=== PATIENT | male | born 1990 | race Caucasian/White ===

== ENCOUNTER 2016-12-10 08:51 | Emergency (ER) | payer MEDICAID, OTHER | END 2016-12-10 10:30 | disposition home or self-care (01) | LOC: C.ER 08:51 | DX: J02.9 Acute pharyngitis, unspecified (principal) ==

== ENCOUNTER 2016-12-21 10:06 | Emergency (ER) | payer MEDICAID ==
[2016-12-21 10:23] VITALS: BP 129/87; PULSE 65; RESP 20; TEMP 97.5; O2SAT 99
--- NOTE | 2016-12-21 10:33 | C.PDOC ---
History Of Present Illness 26 y/o male presents to the ED with complains of left ear pain. Pt states he has been taking antibiotics for a throat infection. Throat symptoms have resolved but now has ear pain. Denies fever, chills, or any other complaints. Time Seen by Provider: 12/21/16 10:15 Chief Complaint (Nursing): ENT Problem History Per: Patient History/Exam Limitations: None Onset/Duration Of Symptoms: Days Current Symptoms Are (Timing): Still Present Symptoms Have Been: Continuous Severity: Mild Anticoagulant/Antiplatlet Use?: No Past Medical History Reviewed: Historical Data, Nursing Documentation, Vital Signs Vital Signs: Last Vital Signs Temp 97.5 F L 12/21/16 10:12 Pulse 65 12/21/16 10:12 Resp 20 12/21/16 10:12 BP 129/87 12/21/16 10:12 Pulse Ox 99 12/21/16 10:34 - Medical History PMH: Migraine Surgical History: Appendectomy Family History: States: Unknown Family Hx - Social History Hx Tobacco Use: No Hx Alcohol Use: No Hx Substance Use: No - Immunization History Hx Tetanus Toxoid Vaccination: Yes Hx Influenza Vaccination: Yes Hx Pneumococcal Vaccination: Yes Review Of Systems Constitutional: Negative for: Fever, Chills ENT: Positive for: Ear Pain (left). Negative for: Throat Pain Physical Exam - Physical Exam Appears: Non-toxic, No Acute Distress Skin: Warm, Dry, No Rash Head: Atraumatic, Normacephalic Ear(s): Left: Other (left canal erythematous), Right: Normal Nose: Normal Oral Mucosa: Moist Throat: Normal, No Erythema, No Exudate Neck: Normal, Normal ROM, Supple Extremity: Bilateral: Atraumatic Neurological/Psych: Oriented x3, Normal Speech ED Course And Treatment O2 Sat by Pulse Oximetry: 99 (room air) Pulse Ox Interpretation: Normal Disposition - Disposition Referrals: [facility] [Outside] [facility] [Outside] [facility] [employer] [facility] [Outside] Javon Villar MD [Staff Provider] - Disposition: HOME/ ROUTINE Disposition Time: 11:00 Condition: GOOD Additional Instructions: please follow up with specialist. return to er with worsening symptoms or concerns. Prescriptions: Neomycin/Polymyxin/Hydrocort [Cortisporin Otic Soln] 4 drop AD TID #1 bottle Instructions: Otitis Externa (ED) - Clinical Impression Clinical Impression: Otitis externa - Scribe Statement The provider has reviewed the documentation as recorded by the Zeinaibsyl Vasquez Provider Attestation: All medical record entries made by the Andre were at my direction and personally dictated by me. I have reviewed the chart and agree that the record accurately reflects my personal performance of the history, physical exam, medical decision making, and the department course for this patient. I have also personally directed, reviewed, and agree with the discharge instructions and disposition.
== END 2016-12-21 10:49 | disposition home or self-care (01) ==
LOC: C.ER 10:06
DX: H60.92 Unspecified otitis externa, left ear (principal)

== ENCOUNTER 2016-12-30 20:39 | Emergency (ER) | payer MEDICAID ==
[2016-12-30 20:57] VITALS: BP 119/75; PULSE 94; RESP 18; TEMP 98.1; O2SAT 97
[2016-12-30] MEDS ORDERED: Naproxen 275 mg Tab PO STA (21:04)
--- NOTE | 2016-12-30 21:14 | C.PDOC ---
History Of Present Illness 26 y/o male presents to ED with complaint of left chest wall and upper back pain for 2 days. Patient describes pain as burning and aching sensation. He admits to heavy lifting at work. Notes that pain worsens with movement and palpation. Denies fever, chills, SOB, palpitations, nausea, rash, or other associated symptoms. Time Seen by Provider: 12/30/16 20:59 Chief Complaint (Nursing): Upper Extremity Problem/Injury History Per: Patient History/Exam Limitations: no limitations Onset/Duration Of Symptoms: Days Current Symptoms Are (Timing): Still Present Quality: Burning, Aching, "Pain" Exacerbating Factor(s): Movement Recent travel outside of the [place]: No Past Medical History Reviewed: Historical Data, Nursing Documentation, Vital Signs Vital Signs: Last Vital Signs Temp 98.1 F 12/30/16 20:54 Pulse 94 H 12/30/16 20:54 Resp 18 12/30/16 20:54 BP 119/75 12/30/16 20:54 Pulse Ox 97 12/30/16 21:32 - Medical History PMH: Migraine Surgical History: Appendectomy Family History: States: Unknown Family Hx - Social History Hx Tobacco Use: No Hx Alcohol Use: No Hx Substance Use: No - Immunization History Hx Tetanus Toxoid Vaccination: Yes Hx Influenza Vaccination: Yes Hx Pneumococcal Vaccination: Yes Review Of Systems Except As Marked, All Systems Reviewed And Found Negative. Constitutional: Negative for: Fever, Chills Cardiovascular: Negative for: Palpitations, Light Headedness Respiratory: Negative for: Cough, Shortness of Breath, Wheezing Gastrointestinal: Negative for: Nausea, Vomiting, Abdominal Pain Musculoskeletal: Positive for: Back Pain, Other (chest wall pain). Negative for : Arm Pain Skin: Negative for: Rash Physical Exam - Physical Exam Appears: Non-toxic, No Acute Distress Skin: Normal Color, Warm, Dry, No Diaphoretic, No Rash Head: Atraumatic, Normacephalic Neck: No Midline Cervical Tenderness, No Paracervical Tenderness, Supple Chest: Symmetrical, Tenderness (left sided tenderness to palpation), No Ecchymosis Cardiovascular: Rhythm Regular, No Murmur Respiratory: Normal Breath Sounds, No Rales, No Rhonchi, No Wheezing Gastrointestinal/Abdominal: Soft, No Tenderness, No Guarding, No Rebound Back: Normal Inspection, No Vertebral Tenderness, No Paraspinal Tenderness Extremity: Normal ROM, Capillary Refill (< 2 sec. ) Neurological/Psych: Oriented x3, Normal Speech, Normal Cognition ED Course And Treatment O2 Sat by Pulse Oximetry: 97 (RA) Pulse Ox Interpretation: Normal Medical Decision Making Medical Decision Making: muscular pain, offer chest xray but patient refuses states had no trauma. Treated with Naproxen. Patient reports improvement of pain on re-evaluation. Advised follow up with PMD/clinic for further evaluation. Disposition Counseled Patient/Family Regarding: Need For Followup, Rx Given - Disposition Referrals: West Cano MD [Medical Doctor] - Disposition: HOME/ ROUTINE Disposition Time: 21:30 Condition: STABLE Additional Instructions: Take Motrin as needed for pain every 6 hours, with food to not upset stomach. Follow up with your primary doctor or orthopedic if pain persists over one week. 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 - Scribe Statement The provider has reviewed the documentation as recorded by the Scribsyl Womack All medical record entries made by the Andre were at my direction and personally dictated by me. I have reviewed the chart and agree that the record accurately reflects my personal performance of the history, physical exam, medical decision making, and the department course for this patient. I have also personally directed, reviewed, and agree with the discharge instructions and disposition.
[2016-12-30] MEDS ORDERED: Naproxen 550 mg Tab PO ONE (21:31)
== END 2016-12-30 21:51 | disposition home or self-care (01) ==
LOC: C.ER 20:39
DX: R07.89 Other chest pain (principal)

== ENCOUNTER 2017-01-03 20:19 | Emergency (ER) | payer MEDICAID ==
[2017-01-03 20:37] VITALS: BMI 30.4
[2017-01-03 20:45] VITALS: BP 124/75; PULSE 78; RESP 18; TEMP 98.2; O2SAT 98
[2017-01-03] MEDS ORDERED: Oxycodone/Acetaminophen 5/325 mg Tab PO STA (21:13)
[2017-01-03] MEDS ORDERED: Oxycodone/Acetaminophen 5/325 mg Tab ONE (21:23)
--- NOTE | 2017-01-03 21:30 | C.PDOC ---
History Of Present Illness 26 year old male presents to the ED with complaints of a painful and burning rash to the left upper back to left lower chest for two days. Patient was seen on 12/30/2016 by doctor for back pain in the same region as the rash and was given naproxen and believes he is having an allergic reactions to the medication. Patient denies any known allergens, lip or tongue swelling. Time Seen by Provider: 01/03/17 20:54 Chief Complaint (Nursing): Abnormal Skin Integrity History Per: Patient History/Exam Limitations: no limitations Onset/Duration Of Symptoms: Days (2 days ) Current Symptoms Are (Timing): Still Present Location Of Injury: Left: Back, Chest Quality Of Symptoms: Painful, Itching. denies: Draining Recent travel outside of the [place]: No Past Medical History Reviewed: Historical Data, Nursing Documentation, Vital Signs Vital Signs: Last Vital Signs Temp 98.2 F 01/03/17 20:39 Pulse 78 01/03/17 20:39 Resp 18 01/03/17 20:39 BP 124/75 01/03/17 20:39 Pulse Ox 98 01/04/17 00:36 - Medical History PMH: Migraine Surgical History: Appendectomy Family History: States: Unknown Family Hx - Social History Hx Tobacco Use: No Hx Alcohol Use: No Hx Substance Use: No - Immunization History Hx Tetanus Toxoid Vaccination: Yes Hx Influenza Vaccination: Yes Hx Pneumococcal Vaccination: Yes Review Of Systems Constitutional: Negative for: Fever, Chills, Sweats Cardiovascular: Negative for: Chest Pain, Palpitations Respiratory: Negative for: Cough, Shortness of Breath Gastrointestinal: Negative for: Nausea, Vomiting, Abdominal Pain, Diarrhea Skin: Positive for: Rash (left upper back to left lower chest ) Physical Exam - Physical Exam Appears: Non-toxic, No Acute Distress Skin: Warm, Dry, Rash (vesicular rash in dermatomal pattern to left upper back and left lower chest wall. Old dermatitis diffusely on back also present. ) Head: Atraumatic Eye(s): bilateral: Normal Inspection, PERRL, EOMI Oral Mucosa: Moist Tongue: Normal Appearing, No Swelling Lips: Normal Appearing, No Swelling Throat: Normal, No Erythema, No Exudate Neck: Normal Chest: Symmetrical, No Deformity Cardiovascular: Rhythm Regular Respiratory: Normal Breath Sounds, No Rhonchi, No Wheezing Gastrointestinal/Abdominal: Normal Exam, Soft Extremity: Normal ROM, No Tenderness Neurological/Psych: Oriented x3 Gait: Steady ED Course And Treatment O2 Sat by Pulse Oximetry: 98 (room air ) Pulse Ox Interpretation: Normal Progress Note: percocet PO given, pt started on antiviral meds and pain meds prescribed. Will follow up in clinic. Return precautions expalined and pt verbalized understanding and agrees with plan. Disposition Counseled Patient/Family Regarding: Diagnosis, Need For Followup, Rx Given - Disposition Referrals: West Cano MD [Primary Care Provider] - Disposition: HOME/ ROUTINE Disposition Time: 21:21 Condition: STABLE Additional Instructions: Please take meds as directed Follow up with PMD Return to ER if worse Prescriptions: oxyCODONE/Acetaminophen [Percocet 5/325 mg Tab] 1 tab PO QID PRN #14 tab PRN Reason: Pain Valacyclovir HCl [Valtrex] 1 gm PO TID #21 tablet Instructions: Shingles (ED) - Clinical Impression Clinical Impression: Shingles - Scribe Statement The provider has reviewed the documentation as recorded by the Scribsyl Carballo All medical record entries made by the Scribe were at my direction and personally dictated by me. I have reviewed the chart and agree that the record accurately reflects my personal performance of the history, physical exam, medical decision making, and the department course for this patient. I have also personally directed, reviewed, and agree with the discharge instructions and disposition.
== END 2017-01-03 21:44 | disposition home or self-care (01) ==
LOC: SUPCPDRO 20:19 → C.ER 20:19
DX: B02.9 Zoster without complications (principal)

== ENCOUNTER 2017-09-15 19:18 | Emergency (ER) | payer SELFPAY ==
[2017-09-15 19:18] VITALS: BMI 30.4
[2017-09-15 20:44] VITALS: BP 138/82; PULSE 83; RESP 16; TEMP 99.1; O2SAT 98
--- NOTE | 2017-09-15 22:07 | C.PDOC ---
History Of Present Illness 27 year old male presents to the ED for evaluation of an itchy rash to his right arm which began 1 month ago. Patient states the rash started around his wrist and is now traveling up his arm. Patient denies presence of rash anywhere else on his body. Patient denies throat swelling sensation, difficulty swallowing, difficulty breathing, known allergens, recent travel, and IV drug use. Time Seen by Provider: 09/15/17 21:47 Chief Complaint (Nursing): Abnormal Skin Integrity History Per: Patient History/Exam Limitations: no limitations Onset/Duration Of Symptoms: Other (1 month ) Current Symptoms Are (Timing): Still Present Quality Of Symptoms: Itching Additional History Per: Patient Past Medical History Reviewed: Historical Data, Nursing Documentation, Vital Signs Vital Signs: Last Vital Signs Temp 99.1 F 09/15/17 20:38 Pulse 83 09/15/17 20:38 Resp 16 09/15/17 20:38 BP 138/82 09/15/17 20:38 Pulse Ox 98 09/20/17 21:46 - Medical History PMH: Migraine Surgical History: Appendectomy Family History: States: Unknown Family Hx - Social History Hx Tobacco Use: No Hx Alcohol Use: Yes Hx Substance Use: No - Immunization History Hx Tetanus Toxoid Vaccination: Yes Hx Influenza Vaccination: Yes Hx Pneumococcal Vaccination: Yes Review Of Systems ENT: Negative for: Throat Swelling Skin: Positive for: Rash Physical Exam - Physical Exam Appears: Non-toxic, No Acute Distress Skin: Rash (mildly erythematous, shiny rash to right anterior forearm, extending from right wrist to right mid-upper arm. no discharge ) Head: Atraumatic, Normacephalic Eye(s): bilateral: Normal Inspection, EOMI Ear(s): Bilateral: Normal Nose: Normal Oral Mucosa: Moist Tongue: No Swelling Lips: No Swelling Throat: Normal, No Erythema, No Exudate, No Drooling Neck: Supple Chest: Symmetrical, No Deformity, No Tenderness Cardiovascular: Rhythm Regular Respiratory: Normal Breath Sounds, No Rales, No Rhonchi, No Wheezing Extremity: Normal ROM, Capillary Refill (less than 2 seconds ) Neurological/Psych: Oriented x3, Normal Speech, Normal Cognition Gait: Steady ED Course And Treatment O2 Sat by Pulse Oximetry: 98 Progress Note: Case discussed with Dr. Moncada, who evaluated the patient at bedside. Agrees with plan and discharge. Patient is resting comfortably, tolerating PO, has no shortness of breath, has no intra-oral swelling, no stridor. Patient notes that pruritus has improved.. Patient was advised to avoid potential allergens, and to follow up with physician in 1-2 days. 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 Take medications as prescribed. Return to the emergency department at any time if symptoms persist or worsen. 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 - Scribe Statement The provider has reviewed the documentation as recorded by the Scribe (melissa Tarango) All medical record entries made by the Scribe were at my direction and personally dictated by me. I have reviewed the chart and agree that the record accurately reflects my personal performance of the history, physical exam, medical decision making, and the department course for this patient. I have also personally directed, reviewed, and agree with the discharge instructions and disposition.
== END 2017-09-15 22:34 | disposition home or self-care (01) ==
LOC: C.ER 19:18
DX: R21 Rash and other nonspecific skin eruption (principal)

== ENCOUNTER 2017-12-02 08:41 | Emergency (ER) | payer OTHER ==
[2017-12-02 08:41] VITALS: BMI 30.4
[2017-12-02 08:56] VITALS: RESP 18
[2017-12-02] MEDS ORDERED: Sodium Chloride 0.9% 1,000 ML IV ONE (09:23)
--- NOTE | 2017-12-02 09:29 | C.PDOC ---
History Of Present Illness 27 y/o male presents to ED with complaints of abdominal cramping since last night associated with vomiting and diarrhea. Patient states he took Imodium 2 hours prior to arrival with mild relief. Patient denies recent travel, fever, sick contacts, blood in stool or hematemesis. Time Seen by Provider: 12/02/17 09:09 Chief Complaint (Nursing): GI Problem History Per: Patient History/Exam Limitations: no limitations Onset/Duration Of Symptoms: Days Current Symptoms Are (Timing): Still Present Location Of Pain/Discomfort: Diffuse Past Medical History Reviewed: Historical Data, Nursing Documentation, Vital Signs Vital Signs: Last Vital Signs Temp 98 F 12/02/17 11:07 Pulse 87 12/02/17 11:07 Resp 18 12/02/17 11:07 BP 136/74 12/02/17 11:07 Pulse Ox 98 12/02/17 11:07 - Medical History PMH: Migraine Surgical History: Appendectomy Family History: States: No Known Family Hx - Social History Hx Tobacco Use: No Hx Alcohol Use: Yes Hx Substance Use: No - Immunization History Hx Tetanus Toxoid Vaccination: Yes Hx Influenza Vaccination: Yes Hx Pneumococcal Vaccination: Yes Review Of Systems Constitutional: Negative for: Fever, Chills Gastrointestinal: Positive for: Vomiting, Abdominal Pain, Diarrhea. Negative for: Hematochezia, Hematemesis Skin: Negative for: Rash Physical Exam - Physical Exam Appears: Non-toxic, No Acute Distress Skin: Warm, Dry, No Rash Head: Atraumatic, Normacephalic Eye(s): bilateral: Normal Inspection Oral Mucosa: Moist Neck: Normal ROM, Supple Cardiovascular: Rhythm Regular Respiratory: Normal Breath Sounds, No Rales, No Rhonchi, No Wheezing Gastrointestinal/Abdominal: Soft, Tenderness (Diffuse), No Guarding, No Rebound Extremity: Normal ROM, Capillary Refill (<2 seconds) Neurological/Psych: Oriented x3, Normal Speech, Normal Cognition ED Course And Treatment - Laboratory Results Result Diagrams: 12/02/17 09:54 12/02/17 09:54 O2 Sat by Pulse Oximetry: 99 (RA) Pulse Ox Interpretation: Normal Medical Decision Making Medical Decision Making: Impression: Viral vs Food poisoning Plan: * blood work * ua * protonix * zofran * iv fluids Progress: Labs reviewed without any abnormality, no leukocytosis or electrolyte abnormality Patient re-evaluated and has no fever and reports feeling better. He was able to tolerate fluids. Denies any abdominal pain at this time. Abdomen is soft flat and nontender. He is stable for discharge. Recommend fluids and CLD with progression as tolerated. Disposition Counseled Patient/Family Regarding: Diagnosis, Need For Followup - Disposition Disposition: HOME/ ROUTINE Disposition Time: 11:01 Condition: GOOD Additional Instructions: Follow up with your primary medical doctor or clinic in 2-5 days for further evaluation. Take medications as prescribed. Return to the emergency department at any time if symptoms persist or worsen. Prescriptions: Famotidine [Acid Controller] 20 mg PO BID #10 tablet Famotidine [Pepcid] 20 mg PO DAILY #20 tab Instructions: Viral Gastroenteritis, Adult (DC) Forms: [employer] ([place]ian), Work Excuse - POA Present On Arrival: None - Clinical Impression Clinical Impression: Gastroenteritis - PA / SMOCKER / Resident Statement MD/DO has reviewed & agrees with the documentation as recorded. - Scribe Statement The provider has reviewed the documentation as recorded by the Andre Benitez All medical record entries made by the Andre were at my direction and personally dictated by me. I have reviewed the chart and agree that the record accurately reflects my personal performance of the history, physical exam, medical decision making, and the department course for this patient. I have also personally directed, reviewed, and agree with the discharge instructions and disposition.
[2017-12-02] MEDS ORDERED: Sodium Chloride 0.9% 1,000 ML ONE (09:51)
[2017-12-02 10:06] LABS: BASO # 0.1 K/uL (0.0-0.2); BASO % 0.9 % (0.0-2.0); EOS # 0.2 K/uL (0.0-0.7); EOS % 3.7 % (0.0-4.0); HEMOGLOBIN 13.8 g/dL (12.0-18.0); LYMPH # 1.8 K/uL (1.0-4.3); LYMPH % 28.5 % (20.0-40.0); MEAN CELL VOLUME 84.3 fL (80.0-94.0); MEAN CORPUSCULAR HEMOGLOBIN 29.3 pg (27.0-31.0); MEAN CORPUSCULAR HGB CONC 34.8 g/dL (33.0-37.0); MEAN PLATELET VOLUME 8.7 fL (7.2-11.7); MONO # 0.5 K/uL (0.0-0.8); MONO % 7.8 % (0.0-10.0); NEUT # 3.6 K/uL (1.8-7.0); NEUT % 59.1 % (50.0-75.0); NRBC % 0.1 % (0.0-2.0); RBC 4.72 Mil/uL (4.40-5.90); RED CELL DISTRIBUTION WIDTH 13.4 % (11.5-14.5); WHITE BLOOD COUNT 6.2 K/uL (4.8-10.8)
[2017-12-02 10:36] LABS: ALB/GLOB RATIO 1.2 (1.0-2.1); ALBUMIN 4.6 g/dL (3.5-5.0); CALCIUM 9.2 mg/dl (8.6-10.4); GFR AFRICAN-AMERICAN > 60; GFR NON-AFRICAN AMERICAN > 60; LIPASE 45 U/L (23-300)
[2017-12-02 10:42] LABS: ALT/SGPT 41 U/L (21-72); AST/SGOT 44 U/L (17-59); BLOOD UREA NITROGEN 13 mg/dL (9-20)
[2017-12-02 11:08] VITALS: BP 136/74; PULSE 87; TEMP 98
[2017-12-02 15:22] VITALS: O2SAT 99
== END 2017-12-02 11:08 | disposition home or self-care (01) ==
LOC: C.ER 08:41
DX: K52.9 Noninfective gastroenteritis and colitis, unspecified (principal)
CPT/HCPCS: 80053; 83690; 85025; 96361; 96374; 96375; 99284; C9113; J2405; J7040

== ENCOUNTER 2018-02-17 10:31 | Emergency (ER) | payer OTHER ==
[2018-02-17 10:31] VITALS: BMI 30.4
[2018-02-17 10:36] VITALS: RESP 18
[2018-02-17] MEDS ORDERED: Naproxen 550 mg Tab PO STA (11:05)
[2018-02-17] MEDS ORDERED: Naproxen 550 mg Tab PO ONE (11:15)
--- NOTE | 2018-02-17 11:26 | C.PDOC ---
Time Seen by Provider: 02/17/18 10:56 Chief Complaint (Nursing): ENT Problem History Per: Patient Onset/Duration Of Symptoms: Days (2) Current Symptoms Are (Timing): Still Present Location Of Pain: Throat Associated Symptoms: Fever (subjective), Sore Throat, Cough (mild) Severity: Moderate Additional History Per: Prior Records Past Medical History Reviewed: Historical Data, Nursing Documentation, Vital Signs Vital Signs: Last Vital Signs Temp 98.8 F 02/17/18 10:34 Pulse 59 L 02/17/18 10:34 Resp 18 02/17/18 10:34 BP 129/81 02/17/18 10:34 Pulse Ox 98 02/17/18 10:34 - Medical History PMH: Migraine Surgical History: Appendectomy Family History: States: Unknown Family Hx - Social History Hx Tobacco Use: No Hx Alcohol Use: Yes Hx Substance Use: No - Immunization History Hx Tetanus Toxoid Vaccination: Yes Hx Influenza Vaccination: Yes Hx Pneumococcal Vaccination: Yes Review Of Systems Except As Marked, All Systems Reviewed And Found Negative. Constitutional: Negative for: Weakness ENT: Positive for: Throat Pain. Negative for: Nose Congestion Cardiovascular: Negative for: Chest Pain Respiratory: Negative for: Shortness of Breath Gastrointestinal: Negative for: Vomiting, Abdominal Pain Musculoskeletal: Negative for: Neck Pain Skin: Negative for: Rash Neurological: Positive for: Headache. Negative for: Weakness, Numbness Physical Exam - Physical Exam Appears: Non-toxic, No Acute Distress Skin: Normal Color, Warm, Dry, No Rash Head: Atraumatic, Normacephalic Eye(s): bilateral: Normal Inspection, PERRL, EOMI Oral Mucosa: Moist, No Drooling, No Trismus Tongue: Normal Appearing Throat: Erythema, No Exudate, No Drooling, No Mass Neck: Normal ROM, Supple Cardiovascular: Rhythm Regular Respiratory: Normal Breath Sounds, No Accessory Muscle Use Gastrointestinal/Abdominal: Soft, No Tenderness Extremity: Normal ROM Neurological/Psych: Oriented x3, Normal Motor, Normal Sensation ED Course And Treatment - Laboratory Results Interpretation Of Abnormal: Rapid strep negative. O2 Sat by Pulse Oximetry: 98 Pulse Ox Interpretation: Normal Reassessment Condition: Improved Disposition Counseled Patient/Family Regarding: Studies Performed, Diagnosis, Need For Followup, Rx Given - Disposition Referrals: [facility] [Outside] Disposition: HOME/ ROUTINE Disposition Time: 11:25 Condition: STABLE Additional Instructions: Follow up with your doctor or in the clinic. Return to the ER if you develop high fever, trouble breathing or swallowing, worsening of symptoms or if you have any other concerns. Prescriptions: Naproxen [Naprosyn] 1 tab PO BID PRN #20 tab PRN Reason: Pain Instructions: Sore Throat, Adult (DC) - Clinical Impression Clinical Impression: Acute pharyngitis
[2018-02-17 11:37] VITALS: BP 120/77; PULSE 66; TEMP 98.1; O2SAT 100
== END 2018-02-17 11:35 | disposition home or self-care (01) ==
LOC: C.ER 10:31
DX: J02.9 Acute pharyngitis, unspecified (principal)

== ENCOUNTER 2018-04-13 19:31 | Emergency (ER) | payer SELFPAY ==
[2018-04-13 19:31] VITALS: BMI 30.4
[2018-04-13 19:52] VITALS: BP 122/85; PULSE 72; TEMP 99.1; O2SAT 98
[2018-04-13] MEDS ORDERED: Lidocaine 5% Patch TD STA (20:27)
[2018-04-13] MEDS ORDERED: Lidocaine 5% Patch TD ONE (20:34)
--- NOTE | 2018-04-13 21:59 | C.PDOC ---
History Of Present Illness 28 year old male presents to ED for evaluation of left-sided lower back pain for the last few days. Patient states he was watching tv, stood up, and felt something pulled. Denies fever, nausea, vomiting, tingling, numbness, urine deficit, and other associated symptoms. Time Seen by Provider: 04/13/18 19:56 Chief Complaint (Nursing): Back Pain History Per: Patient History/Exam Limitations: no limitations Onset/Duration Of Symptoms: Days Current Symptoms Are (Timing): Still Present Past Medical History Reviewed: Historical Data, Nursing Documentation, Vital Signs Vital Signs: Last Vital Signs Temp 99.1 F 04/13/18 19:48 Pulse 72 04/13/18 19:48 Resp 20 04/13/18 22:02 BP 122/85 04/13/18 19:48 Pulse Ox 98 04/13/18 22:15 - Medical History PMH: Migraine Surgical History: Appendectomy (2002) Family History: States: Unknown Family Hx - Social History Hx Tobacco Use: No Hx Alcohol Use: No Hx Substance Use: No - Immunization History Hx Tetanus Toxoid Vaccination: Yes Hx Influenza Vaccination: Yes Hx Pneumococcal Vaccination: No Review Of Systems Constitutional: Negative for: Fever, Chills Gastrointestinal: Negative for: Nausea, Vomiting Musculoskeletal: Positive for: Back Pain (left-sided lower back) Neurological: Negative for: Weakness, Numbness, Incoordination Physical Exam - Physical Exam Appears: Non-toxic, No Acute Distress Skin: Warm, Dry Head: Atraumatic, Normacephalic Chest: Symmetrical Cardiovascular: Rhythm Regular Respiratory: Other (NARD) Back: Muscle Spasm (with tenderness) Neurological/Psych: Oriented x3, Normal Speech, Normal Motor, Normal Sensation Gait: Steady ED Course And Treatment O2 Sat by Pulse Oximetry: 98 (RA) Pulse Ox Interpretation: Normal - Other Rad LS Spine AP/LAT X-ray X-Ray: Viewed By Me, Read By Radiologist Progress Note: Ordered LS Spin AP/LAT X-ray. Given Lidocaine, Toradol and Valium. X-ray reviewed: Flattening of Lumbar Lordosis. On re-evaluation patient feels better, ambulatory. Prescribed Lidocaine, Motrin, and Valium. Disposition - Disposition Referrals: [facility] [Outside] Disposition: HOME/ ROUTINE Disposition Time: 21:57 Condition: GOOD Additional Instructions: Follow up within 1-2 days.Return to9 ED if feel worse. 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 - Scribe Statement The provider has reviewed the documentation as recorded by the Scribe (Mildred Davila) All medical record entries made by the Scribe were at my direction and personally dictated by me. I have reviewed the chart and agree that the record accurately reflects my personal performance of the history, physical exam, medical decision making, and the department course for this patient. I have also personally directed, reviewed, and agree with the discharge instructions and disposition.
[2018-04-13 22:02] VITALS: RESP 20
--- NOTE | 2018-04-14 08:41 | RAD ---
Date of service: 04/13/2018 PROCEDURE: Radiographs of the Lumbar Spine. HISTORY: pain COMPARISON: Lumbar spine series 03/30/2013. FINDINGS: BONES: Slight straightening of the lumbar curvature. No acute fracture or spondylolisthesis identified. Interval diminished disc height at L4-5 indicates degenerative disease here. DISC SPACES: As above. OTHER FINDINGS: None. IMPRESSION: No acute fracture or spondylolisthesis. Slight straightening of the lumbar curvature with interval disc height loss at L4-5 indicating mild degenerative disease here.
== END 2018-04-13 22:02 | disposition home or self-care (01) ==
LOC: C.ER 19:31
DX: M54.5 Low back pain (principal)
CPT/HCPCS: 72100; 96372; 99283; J1885

== ENCOUNTER 2018-09-23 06:34 | Emergency (ER) | payer OTHER ==
[2018-09-23 06:35] VITALS: BMI 30.4
[2018-09-23 06:43] VITALS: RESP 20
--- NOTE | 2018-09-23 07:41 | C.PDOC ---
History Of Present Illness 28-year-old male with no prior medical history presents to the ED complaining he spit up blood this morning. Patient states he awoke spitting up "two clots". He also reports throat irritation since this morning. States 5 minutes after noticing blood, he vomited once. The vomitus is described as brown in color, no gross red blood. Otherwise patient denies any cough, fever, congestion, difficulty breathing, abdominal pain, diarrhea, chest pain, or epistaxis. Patient reports only occasional alcohol use, and has not drank in the past week. Last bowel movement was yesterday, and was normal. Time Seen by Provider: 09/23/18 07:18 Chief Complaint (Nursing): GI Problem History Per: Patient History/Exam Limitations: no limitations Onset/Duration Of Symptoms: Hrs Number Of Bleeding Episodes: One Amount of Blood Loss: Small Associated Symptoms: Vomiting, Other ("spit up a clot") Past Medical History Reviewed: Historical Data, Nursing Documentation, Vital Signs Vital Signs: Last Vital Signs Temp 98.6 F 09/23/18 07:05 Pulse 76 09/23/18 07:05 Resp 20 09/23/18 07:05 BP 122/80 09/23/18 07:05 Pulse Ox 98 09/23/18 07:05 - Medical History PMH: Migraine Surgical History: Appendectomy (2002) Family History: States: Unknown Family Hx - Social History Hx Tobacco Use: No Hx Alcohol Use: No Hx Substance Use: No - Immunization History Hx Tetanus Toxoid Vaccination: No Hx Influenza Vaccination: Yes Hx Pneumococcal Vaccination: No Review Of Systems Except As Marked, All Systems Reviewed And Found Negative. Constitutional: Negative for: Fever, Chills Eyes: Negative for: Vision Change ENT: Positive for: Other ("spit up a clot"). Negative for: Nose Discharge, Nose Congestion Cardiovascular: Negative for: Chest Pain Respiratory: Negative for: Cough, Shortness of Breath Gastrointestinal: Positive for: Vomiting. Negative for: Nausea, Abdominal Pain, Diarrhea, Hematochezia, Hematemesis Neurological: Negative for: Weakness, Headache, Dizziness Physical Exam - Physical Exam Appears: Well, Non-toxic, No Acute Distress Skin: Warm, Dry, No Pale, No Rash Head: Atraumatic, Normacephalic Eye(s): bilateral: Normal Inspection Nose: Normal, No Epistaxis, No Deformity Oral Mucosa: Moist Throat: Normal (oropharynx is clear), No Erythema, No Exudate Neck: Normal ROM Chest: Symmetrical Cardiovascular: Rhythm Regular, No Murmur Respiratory: Normal Breath Sounds, No Accessory Muscle Use Gastrointestinal/Abdominal: Bowel Sounds (normal), Soft, No Tenderness, No Distention, No Guarding Extremity: Bilateral: Atraumatic, Normal Color And Temperature, Normal ROM Neurological/Psych: Oriented x3, Normal Speech Gait: Steady ED Course And Treatment - Laboratory Results Result Diagrams: 09/23/18 07:40 09/23/18 07:40 Lab Interpretation: No Acute Changes O2 Sat by Pulse Oximetry: 98 (RA) Pulse Ox Interpretation: Normal Medical Decision Making Medical Decision Making: Impression: 28 year old complaining he "spit up" blood this morning Initial Plan: - CMP - CBC - PTT/PT Labs reviewed and unremarkable. Normal H/H and coags. Patient remained well, with stable vital signs in no distress. Discussed results with patient. During ED observation he denied any nausea, chest or abdominal pain, and no vomiting noted. Patient stable for discharge and to follow up with PCP. Disposition Counseled Patient/Family Regarding: Diagnosis, Need For Followup - Disposition Referrals: [facility] [Outside] [facility] [Outside] Disposition: HOME/ ROUTINE Disposition Time: 08:18 Condition: STABLE Additional Instructions: Your labs were normal. 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 - Scribe Statement The provider has reviewed the documentation as recorded by the Andre Zuñiga All medical record entries made by the Zeinaibe were at my direction and personally dictated by me. I have reviewed the chart and agree that the record accurately reflects my personal performance of the history, physical exam, medical decision making, and the department course for this patient. I have also personally directed, reviewed, and agree with the discharge instructions and disposition.
[2018-09-23 07:48] LABS: BASO % 0.7 % (0.0-2.0); EOS # 0.3 K/uL (0.0-0.7); EOS % 4.4 % (0.0-4.0); HEMOGLOBIN 14.8 g/dL (12.0-18.0); LYMPH # 1.8 K/uL (1.0-4.3); LYMPH % 27.2 % (20.0-40.0); MEAN CELL VOLUME 84.8 fL (80.0-94.0); MEAN CORPUSCULAR HEMOGLOBIN 28.3 pg (27.0-31.0); MEAN CORPUSCULAR HGB CONC 33.4 g/dL (33.0-37.0); MEAN PLATELET VOLUME 8.2 fL (7.2-11.7); MONO # 0.6 K/uL (0.0-0.8); MONO % 8.2 % (0.0-10.0); NEUT % 59.5 % (50.0-75.0); NRBC % 0.1 % (0.0-2.0); RBC 5.23 Mil/uL (4.40-5.90); RED CELL DISTRIBUTION WIDTH 13.1 % (11.5-14.5); WHITE BLOOD COUNT 6.8 K/uL (4.8-10.8)
[2018-09-23 08:03] LABS: ALB/GLOB RATIO 1.6 (1.0-2.1); ALBUMIN 4.9 g/dL (3.5-5.0); ALT/SGPT 41 U/L (21-72); AST/SGOT 36 U/L (17-59); BLOOD UREA NITROGEN 11 mg/dL (9-20); CALCIUM 9.2 mg/dl (8.6-10.4); GFR NON-AFRICAN AMERICAN > 60
[2018-09-23 08:27] LABS: INR 0.9; PROTHROMBIN TIME 10.3 SECONDS (9.7-12.2)
[2018-09-23 08:41] VITALS: BP 122/83; PULSE 71; TEMP 99.3
[2018-09-23 09:19] VITALS: O2SAT 98
== END 2018-09-23 08:42 | disposition home or self-care (01) ==
LOC: C.ER 06:34
DX: R11.10 Vomiting, unspecified (principal)

== ENCOUNTER 2018-11-04 12:45 | Emergency (ER) | payer OTHER ==
[2018-11-04 12:55] VITALS: BMI 31.9
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
[2018-11-04 15:10] VITALS: BP 125/85; PULSE 67; RESP 16; TEMP 97.6
[2018-11-04 17:27] VITALS: O2SAT 97
== END 2018-11-04 17:31 | disposition home or self-care (01) ==
LOC: C.ER 12:45
DX: H81.10 Benign paroxysmal vertigo, unspecified ear (principal); R51 Headache
CPT/HCPCS: 96372; 99285; J1885

== ENCOUNTER 2018-11-11 09:10 | Emergency (ER) | payer OTHER ==
[2018-11-11 09:11] VITALS: BMI 31.9
[2018-11-11 09:31] VITALS: BP 130/79; PULSE 72; RESP 17; TEMP 99.2; O2SAT 98
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
--- NOTE | 2018-11-11 10:45 | RAD ---
Date of service: 11/11/2018 PROCEDURE: Cervical Spine Radiographs. HISTORY: Pain. COMPARISON: None available. FINDINGS: BONES: Osseous demineralization limits evaluation for acute fracture lines. Alignment maintained. No acute displaced fracture identified. Superior most dens tip obscured. Visualized portions of the dens tip appear intact. Mild degenerative changes including small osteophyte formation. DISC SPACES: Intervertebral disc space narrowing. SOFT TISSUES: Unremarkable. No prevertebral soft tissue swelling. OTHER FINDINGS: None. IMPRESSION: No acute displaced fracture identified. Superior most dens tip obscured. Degenerative changes. Osseous demineralization.
== END 2018-11-11 10:38 | disposition home or self-care (01) ==
LOC: C.ER 09:10
DX: S13.4XXA Sprain of ligaments of cervical spine, initial encounter (principal); S39.012A Strain of muscle, fascia and tendon of lower back, initial encounter; S60.00XA Contusion of unspecified finger without damage to nail, initial encounter; V49.49XA Driver injured in collision with other motor vehicles in traffic accident, initial encounter; Y92.410 Unspecified street and highway as the place of occurrence of the external cause